=== PATIENT | female | born 1995 | race Two or more races ===

== ENCOUNTER 2023-05-13 14:17 | Outpatient (CLI) | payer OTHER | END 2023-05-13 14:19 | disposition home or self-care (01) | LOC: PRENATAL 14:17 | PROVIDERS: ATTEND Obstetrics & Gynecology Maternal & Fetal Medicine | DX: O35.3XX0 Maternal care for (suspected) damage to fetus from viral disease in mother, not applicable or unspecified (principal); O44.00 Complete placenta previa NOS or without hemorrhage, unspecified trimester; Z3A.20 20 weeks gestation of pregnancy ==

== ENCOUNTER 2023-08-06 15:49 | Outpatient (CLI) | payer OTHER | END 2023-08-06 15:50 | disposition home or self-care (01) | LOC: PRENATAL 15:49 | PROVIDERS: ATTEND Obstetrics & Gynecology Maternal & Fetal Medicine | DX: O26.849 Uterine size-date discrepancy, unspecified trimester (principal); O36.8199 Decreased fetal movements, unspecified trimester, other fetus; Z3A.32 32 weeks gestation of pregnancy ==

== ENCOUNTER 2023-09-21 17:54 | Inpatient (IN) | payer OTHER ==
[~2023-09-21] VITALS: Ht 162.6 cm; Wt 73.5 kg
[2023-09-21] MEDS ORDERED: PRENATAL TABLE1 EAC4 PO (18:01)
[2023-09-21] MEDS ORDERED: RINGERS SOLUTION,LACTATED 1,000 ML IV SCH (18:15)
[2023-09-21 18:26] LABS: URINE APPEARANCE Clear; URINE BILIRRUBIN Negative (NEGATIVE); URINE BLOOD Negative; URINE COLOR Yellow; URINE GLUCOSE Negative (NEGATIVE); URINE LEUKOCYTE Negative; URINE NITRATE Negative; URINE PROTEIN Negative (NEGATIVE); URINE UROBILINOGEN 0.2 E.U./dl
[2023-09-21 18:27] LABS: URINE EPITHELIAL CELLS 2.9 uL (0.0-38.8)
[2023-09-21 18:33] LABS: URINE RBC 0.5 uL (0.0-20.8)
[2023-09-21 18:36] LABS: HEMATOCRIT 37.1 % (36.0-45.00); HEMOGLOBIN 12.8 g/dL (12.0-15.00); MEAN CELL VOLUME 96.4 fL (80.00-100.00); MEAN CORPUSCULAR HEMOGLOBIN 33.2 pg (27.00-32.0); MEAN CORPUSCULAR HGB CONC 34.4 g/dl (32.0-36.0); PLATELET COUNT 248 K/uL (150-450); RED BLOOD COUNT 3.85 M/uL (4.00-6.00); RED CELL DISTRIBUTION WIDTH 13.8 % (11.5-14.5)
[2023-09-21 18:45] LABS: INR < 0.93; PARTIAL THROMBOPLASTIN TIME 26.8 SECONDS (22.0-34.0); PROTHROMBIN TIME 9.3 SECONDS (9.0-11.5)
[2023-09-21 18:52] LABS: BILIRUBIN TOTAL 0.67 mg/dL (0.3-1.2); CALCIUM 9.4 mg/dL (8.5-10.1); CREATININE SERUM 0.74 mg/dL (0.55-1.02); GFR 94.86; GLOBULINA 3.9 G/DL (2.4-3.5); POTASSIUM 4.13 mEq/L (3.5-5.1); TOTAL PROTEIN 6.9 gm/dL (6.4-8.2)
[2023-09-21] MEDS ORDERED: OXYTOCIN 20 UNITS/500ML RL PIGGYBAG IV ONE (19:56)
[2023-09-21] MEDS ORDERED: OXYTOCIN 500 ML IV SCH (20:15)
[2023-09-21] MEDS ORDERED: ERYTHROMYCIN BASE 1 GM TUBE OP ONE (21:27)
[2023-09-21] MEDS ORDERED: CHLORHEXIDINE GLUCONATE 120 ML BOTTLE TOP ONE (21:27)
[2023-09-21] MEDS ORDERED: OXYTOCIN 20 UNITS/1000ML RL PIGGYBAG IV ONE (21:27)
[2023-09-21] MEDS ORDERED: IBUprofen 400 MG TABLET PO PRN (23:45)
[2023-09-21] MEDS ORDERED: OXYTOCIN 1,000 ML IV SCH (23:45)
[2023-09-21] MEDS ORDERED: BENZOCAINE/MENTHOL 90 ML BOTTLE TOP PRN (23:45)
[2023-09-21] MEDS ORDERED: ACETAMINOPHEN 325 MG TABLET PO PRN (23:45)
[2023-09-22] MEDS ORDERED: CHLORHEXIDINE GLUCONATE 120 ML BOTTLE TOP ONE (01:45)
[2023-09-22] MEDS ORDERED: LIDOCAINE HCL 1% 10ML VIAL PERCUT ONE (01:45)
[2023-09-22] MEDS ORDERED: ERYTHROMYCIN BASE 1 GM TUBE OP ONE (01:45)
[2023-09-22] MEDS ORDERED: SIMETHICONE 125 MG CAPSULE PO SCH (09:00)
[2023-09-22] MEDS ORDERED: DOCUSATE SODIUM 100MG CAP PO SCH (09:00)
== END 2023-09-23 12:21 | disposition home or self-care (01) | DRG 807 ==
LOC: OB/GYN 17:54 → LDR 17:54 → OB/GYN 09-22 00:03
PROVIDERS: ADMIT Obstetrics & Gynecology; ATTEND Obstetrics & Gynecology
PROC: 10E0XZZ Delivery of Products of Conception, External Approach (ICD-10-PCS; principal; 2023-09-21)
PROC: 0UQG7ZZ Repair Vagina, Via Natural or Artificial Opening (ICD-10-PCS; 2023-09-21)
PROC: 4A1HXCZ Monitoring of Products of Conception, Cardiac Rate, External Approach (ICD-10-PCS; 2023-09-21)
DX: O71.4 Obstetric high vaginal laceration alone (principal); Z37.0 Single live birth; Z3A.39 39 weeks gestation of pregnancy; Z20.822 Contact with and (suspected) exposure to COVID-19

== ENCOUNTER 2024-10-09 10:37 | Outpatient (CLI) | payer OTHER ==
[~2024-10-09 10:37] MED LIST: PRENATAL TABLE1 EAC4 PO
== END 2024-10-09 10:50 | disposition home or self-care (01) ==
LOC: PRENATAL 10:37
PROVIDERS: ATTEND Obstetrics & Gynecology Maternal & Fetal Medicine
DX: O36.80X0 Pregnancy with inconclusive fetal viability, not applicable or unspecified (principal); Z36.82 Encounter for antenatal screening for nuchal translucency; Z14.8 Genetic carrier of other disease; Z3A.14 14 weeks gestation of pregnancy

== ENCOUNTER 2024-11-25 10:28 | Outpatient (CLI) | payer OTHER | END 2024-11-25 10:29 | disposition home or self-care (01) | LOC: PRENATAL 10:28 | PROVIDERS: ATTEND Obstetrics & Gynecology Maternal & Fetal Medicine | DX: O44.00 Complete placenta previa NOS or without hemorrhage, unspecified trimester (principal); Z3A.20 20 weeks gestation of pregnancy ==

== ENCOUNTER → 2025-02-19 10:42 | Outpatient (CLI) | payer OTHER | END | disposition home or self-care (01) | LOC: PRENATAL 10:42 | PROVIDERS: ATTEND Obstetrics & Gynecology Maternal & Fetal Medicine | DX: O26.849 Uterine size-date discrepancy, unspecified trimester (principal); O36.8130 Decreased fetal movements, third trimester, not applicable or unspecified; Z3A.33 33 weeks gestation of pregnancy ==

== ENCOUNTER 2025-03-28 19:57 | Inpatient (IN) | payer OTHER ==
[~2025-03-28] VITALS: Ht 162.6 cm; Wt 68.0 kg
[2025-03-28 19:15] VITALS: BP 130/76; O2SAT 98
[2025-03-28] MEDS ORDERED: VITAMIN D310 MCG/1 M PO (20:02)
[2025-03-28] MEDS ORDERED: RINGERS SOLUTION,LACTATED 1,000 ML IV SCH (20:15)
[2025-03-28] MEDS ORDERED: AMPICILLIN SODIUM 2,000 MG VIAL IV ONE (20:15)
[2025-03-28 20:53] LABS: BASO % 0.6 % (0.1-1.2); EOS # 0.17 (0.04-0.54); EOS % 2.0 % (0.7-7.0); LYMPH # 1.36 (1.18-3.74); LYMPH % 16.1 % (19.3-53.1); MEAN PLATELET VOLUME 10.50 fl (9.4-12.4); MONO # 0.72 (0.24-0.82); MONO % 8.5 % (4.7-12.5); NEUT # 6.07 (1.56-6.13); NEUT % 72.1 % (34.0-71.1); RED CELL DISTRIBUTION WIDTH 13.0 % (11.6-14.4)
[2025-03-28] MEDS ORDERED: AMPICILLIN SODIUM 1,000 MG VIAL IV SCH (21:00)
[2025-03-28 21:15] LABS: INR < 0.93
[2025-03-28 21:18] LABS: ALT/SGPT 23.0 U/L (12-78); AST/SGOT 23.0 U/L (15-37); BILIRUBIN TOTAL 0.42 mg/dL (0.3-1.2); BUN CREA RATIO 13.0 (7.0-25.0); CREATININE SERUM 0.63 mg/dL (0.55-1.02); GFR 112.52; GLOBULINA 3.6 G/DL (2.4-3.5); GLUCOSE FASTING 83.0 mg/dL (65-100); OSMOLALITY SERUM 275.0 MOSM/KG (275-295)
[2025-03-28 23:12] VITALS: BP 114/72
[2025-03-28] MEDS ORDERED: LIDOCAINE HCL 1% 10ML VIAL ONE (23:18)
[2025-03-28] MEDS ORDERED: ERYTHROMYCIN BASE OPHT 1GM EACH TUBE OP ONE (23:18)
[2025-03-28] MEDS ORDERED: CHLORHEXIDINE GLUCONATE 120 ML BOTTLE TOP ONE (23:18)
[2025-03-28] MEDS ORDERED: OXYTOCIN 20 UNITS/1000ML RL PIGGYBAG IV ONE (23:18)
[2025-03-28 23:25] VITALS: BP 114/72
[2025-03-29] VITALS (7 sets, daily range): BP systolic 103–137; BP diastolic 67–87
[2025-03-29] MEDS ORDERED: METHYLERGONOVINE MALEATE 0.2 MG/ML AMPUL ONE (01:30)
[2025-03-29] MEDS ORDERED: METHYLERGONOVINE MALEATE 0.2 MG/ML AMPUL IV STA (01:48)
[2025-03-29] MEDS ORDERED: ACETAMINOPHEN 500 MG GEL..CAP PO PRN (02:00)
[2025-03-29] MEDS ORDERED: CHLORHEXIDINE GLUCONATE 120 ML BOTTLE TOP SCH (02:00)
[2025-03-29] MEDS ORDERED: OXYTOCIN 1,000 ML IV SCH (02:00)
[2025-03-29] MEDS ORDERED: ERYTHROMYCIN BASE OPHT 1GM EACH TUBE OP ONE (02:15)
[2025-03-29] MEDS ORDERED: LIDOCAINE HCL 1% 10ML VIAL IJ ONE (02:15)
[2025-03-29 06:29] LABS: BASO % 0.3 % (0.1-1.2); EOS # 0.07 (0.04-0.54); EOS % 0.5 % (0.7-7.0); LYMPH # 1.07 (1.18-3.74); LYMPH % 7.3 % (19.3-53.1); MEAN PLATELET VOLUME 10.20 fl (9.4-12.4); MONO # 0.93 (0.24-0.82); MONO % 6.4 % (4.7-12.5); NEUT # 12.45 (1.56-6.13); NEUT % 85.0 % (34.0-71.1); RED CELL DISTRIBUTION WIDTH 12.8 % (11.6-14.4)
[2025-03-29] MEDS ORDERED: DOCUSATE SODIUM 100MG CAP PO SCH (09:00)
[2025-03-29] MEDS ORDERED: HYDROCORTISONE 2.5% 30 GM TUBE RECTAL SCH (09:00)
[2025-03-29] MEDS ORDERED: SOD FERRIC GLUC COMPLX/SUCROSE 62.5 MG/5 ML AMPUL IV SCH (09:00)
[2025-03-29] MEDS ORDERED: FERROUS SULFATE 325 MG TABLET.EC PO SCH (09:00)
[2025-03-29] MEDS ORDERED: BENZOCAINE/MENTHOL 90 ML BOTTLE TOP SCH ×2 (13:45→17:00)
[2025-03-30] VITALS: BP 103/69
[2025-03-30 09:13] VITALS: BP 114/79
[2025-03-30 13:03] VITALS: BP 108/66
[2025-03-30 15:35] VITALS: BP 103/68
[2025-03-31] VITALS: BP 116/72
[2025-03-31 08:00] VITALS: BP 109/69
== END 2025-03-31 15:25 | disposition home or self-care (01) | DRG 807 ==
LOC: OBS/DEL 19:57 → LDR 21:59 → OBS/DEL 22:02 → OB/GYN 23:26 → LDR 23:26 → OB/GYN 03-29 01:40
PROVIDERS: ADMIT General Practice; ATTEND General Practice
PROC: 4A1HXCZ Monitoring of Products of Conception, Cardiac Rate, External Approach (ICD-10-PCS; 2025-03-28)
PROC: 10E0XZZ Delivery of Products of Conception, External Approach (ICD-10-PCS; principal; 2025-03-29)
PROC: 0HQ9XZZ Repair Perineum Skin, External Approach (ICD-10-PCS; 2025-03-29)
DX: O70.0 First degree perineal laceration during delivery (principal); Z37.0 Single live birth; O99.824 Streptococcus B carrier state complicating childbirth; Z3A.37 37 weeks gestation of pregnancy